=== PATIENT | male | born 1940 | race Two or more races ===

== ENCOUNTER 2022-07-24 08:15 | Outpatient (CLI) | payer OTHER | END 2022-07-24 08:26 | disposition home or self-care (01) | LOC: SONOGRAMA 08:15 | DX: R22.1 Localized swelling, mass and lump, neck (principal) ==

== ENCOUNTER 2024-01-12 09:39 | Outpatient (CLI) | payer OTHER ==
[2024-01-12 11:20] LABS: T4 FREE 1.26 NG/ML (0.76-1.46); TSH 1.92 uIU/mL (0.358-3.74)
== END 2024-01-12 10:39 | disposition home or self-care (01) ==
LOC: LAB 09:39
PROVIDERS: ATTEND Internal Medicine Endocrinology, Diabetes & Metabolism
DX: E03.8 Other specified hypothyroidism (principal)